=== PATIENT | female | born 1975 | race Asian ===

== ENCOUNTER 2016-08-11 16:18 | Emergency (ER) | payer OTHER ==
[2016-08-11] MEDS ORDERED: HYDROCODONE/APAP 5/325 TAB PO ONE (16:27)
[2016-08-11 16:28] VITALS: BP 160/100; PULSE 20; RESP 103; TEMP 99; O2SAT 99
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
== END 2016-08-11 17:24 | disposition home or self-care (01) ==
LOC: CED 16:18
DX: S80.11XA Contusion of right lower leg, initial encounter (principal); V44.5XXA Car driver injured in collision with heavy transport vehicle or bus in traffic accident, initial encounter; Y92.410 Unspecified street and highway as the place of occurrence of the external cause; Y99.8 Other external cause status; Y93.89 Activity, other specified
CPT/HCPCS: 73562-PO; 73590-PO